=== PATIENT | male | born 1970 | race Caucasian/White ===

== ENCOUNTER 2017-03-31 07:38 | Emergency (ER) | payer SELFPAY ==
[~2017-03-31] VITALS: Ht 195.6 cm; Wt 136.1 kg
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
--- NOTE | 2017-03-31 09:48 | ULTRASOUND REPORT ---
EXAMINATION: US TRIPLEX LOWER EXTREMITY, LEFT CLINICAL INFORMATION: Left lower extremity edema and pain. COMPARISON: None TECHNIQUE: Color-flow triplex imaging with spectral analysis and compression Doppler were performed on the left lower extremity. FINDINGS: Respiratory variation, normal compression and augmented flow are noted throughout the left lower extremity. The visualized common femoral vein, superficial femoral vein, profunda femoral vein, popliteal vein and midcalf peroneal and posterior tibial venous segments show no evidence of deep venous thrombosis. There is no Armstrong's cyst. IMPRESSION: Normal triplex scan without evidence of deep venous thrombosis involving the left lower extremity.
[2017-03-31] MEDS ORDERED: PERCOCET 5-3251 EACH PO (10:09)
[2017-03-31 10:29] VITALS: BP 158/74
== END 2017-03-31 10:29 ==
LOC: ERH 07:38
DX: S80.12XA Contusion of left lower leg, initial encounter (principal); V38.0XXA Driver of three-wheeled motor vehicle injured in noncollision transport accident in nontraffic accident, initial encounter; Y92.9 Unspecified place or not applicable; Y93.9 Activity, unspecified
CPT/HCPCS: 73590-LT; 73610-LT; 73630-LT